=== PATIENT | female | born 1980 | race Caucasian/White ===

== ENCOUNTER 2018-05-18 14:41 | Emergency (ER) | payer MEDICAID ==
[~2018-05-18] VITALS: Ht 157.5 cm; Wt 109.3 kg
[~2018-05-18 14:41] MED LIST: ALBU6.7H INH; CLOB15CR4 TP; HYDR-4383 PO; IBUP-1986 PO; MACROBID PO; METH-360 PO; NO HOME MEDS; PHEN-786 PO
[2018-05-18] MEDS ORDERED: normal saline 1000ML IV soln IVB ONE (15:05)
[2018-05-18] MEDS ORDERED: ondansetron/PF 4mg/2ml inj IV ONE (15:05)
[2018-05-18 15:26] LABS: BASOPHILS % (AUTO) 0.7 % (0-1); EOSINOPHILS # (AUTO) 0.5 X10'3 (0-0.9); EOSINOPHILS % (AUTO) 7.3 % (0-6); HEMATOCRIT 38.5 % (35.0-45.0); HEMOGLOBIN 12.8 g/dl (12.0-16.0); LYMPHOCYTES # (AUTO) 1.7 X10'3 (1.1-4.8); LYMPHOCYTES % (AUTO) 26.7 % (21-51); MEAN CORPUSCULAR HEMOGLOBIN 29.8 PG (27.0-31.0); MEAN CORPUSCULAR HGB CONC 33.3 % (33.0-36.5); MEAN CORPUSCULAR VOLUME 89.4 FL (78-98); MEAN PLATELET VOLUME 7.4 FL (7.4-10.4); MONOCYTES # (AUTO) 0.3 X10'3 (0-0.9); MONOCYTES % (AUTO) 5.2 % (2-12); NEUTROPHILS # (AUTO) 3.7 X10'3 (1.8-7.7); NEUTROPHILS % (AUTO) 60.1 % (42-75); PLATELET COUNT 222 X10'3 (140-440); RED CELL DISTRIBUTION WIDTH 13.4 % (11.5-14.5); WHITE BLOOD COUNT 6.2 X10'3 (4.5-11.0)
[2018-05-18 15:46] LABS: ALANINE AMINOTRANSFERASE 29 U/L (12-78); ALBUMIN 3.3 G/DL (3.4-5.0); ALBUMIN/GLOBULIN RATIO 0.9 (1.1-1.5); ALKALINE PHOSPHATASE 99 IU/L (46-116); ANION GAP 7 (8-16); ASPARTATE AMINO TRANSFERASE 23 U/L (10-37); BILIRUBIN,TOTAL 0.3 MG/DL (0.1-1.0); BLOOD UREA NITROGEN 10 MG/DL (7-18); BUN/CREATININE RATIO 10.1 (6.6-38.0); CALCIUM 8.3 MG/DL (8.5-10.1); CHLORIDE 104 MMOL/L (99-107); CREATININE 0.99 MG/DL (0.40-0.90); GLUCOSE 107 MG/DL (70-104); LIPASE 100 U/L (73-393); SODIUM 140 MMOL/L (135-145); TOTAL PROTEIN 6.9 G/DL (6.4-8.2); eGFR 63 ML/MIN
[2018-05-18 15:53] LABS: URINE HCG NEGATIVE (NEG)
[2018-05-18 15:54] LABS: UA COLLECTION TYPE STRAIGHT CATH
[2018-05-18 15:55] LABS: CLARITY,URINE SLIGHTLY CLOUDY (Clear); COLOR,URINE YELLOW (Yellow); GLUCOSE, URINE NEGATIVE (Neg); PH,URINE 5.5 (4.8-8.0); PROTEIN,URINE TRACE mg/dl (Neg)
[2018-05-18 15:56] LABS: KETONES,URINE NEGATIVE (Neg); LEUKOCYTE ESTERASE ,URINE NEGATIVE (Neg); NITRITES, URINE NEGATIVE (Neg); OCCULT BLOOD,URINE LARGE (Neg); UROBILINOGEN,URINE 0.2 E.U/dL (0.2-1.0)
[2018-05-18 15:58] LABS: SQUAMOUS EPITHELIAL CELL,UR MANY /LPF (FEW)
[2018-05-18 15:59] LABS: MUCUS STRANDS MODERATE /LPF (Neg); RBC,URINE 20-50 /HPF (0-2)
[2018-05-18 16:00] LABS: BACTERIA,URINE FEW /HPF (Neg); WBC,URINE 0-4 /HPF (0-4)
[2018-05-18] MEDS ORDERED: ONDA4TAB9 PO (16:01)
[2018-05-18 19:08] VITALS: BP 141/73
== END 2018-05-18 19:09 | disposition home or self-care (01) ==
LOC: ER 14:41
DX: A08.4 Viral intestinal infection, unspecified (principal); R00.0 Tachycardia, unspecified; G89.29 Other chronic pain; E66.01 Morbid (severe) obesity due to excess calories; M19.90 Unspecified osteoarthritis, unspecified site; Z88.2 Allergy status to sulfonamides; Z91.013 Allergy to seafood; Z87.440 Personal history of urinary (tract) infections; Z90.49 Acquired absence of other specified parts of digestive tract; Z90.710 Acquired absence of both cervix and uterus; Z98.890 Other specified postprocedural states
CPT/HCPCS: 36415; 80053; 81001; 81025; 83690; 85025; 96361; 96374; 99285; J2405

== ENCOUNTER 2019-05-26 23:48 | Emergency (ER) | payer MEDICAID ==
[~2019-05-26] VITALS: Ht 157.5 cm; Wt 104.0 kg
[~2019-05-26 23:48] MED LIST changes: -ALBU6.7H INH; +ALBU6.7H9 INH
[2019-05-26 23:49] VITALS: BP 130/100
[2019-05-27] MEDS ORDERED: DOXYCYCLINE 100MG CAPSULE PO STA (00:52)
[2019-05-27] MEDS ORDERED: zinc oxide ointment 30gm tube TP STA (00:54)
[2019-05-27] MEDS ORDERED: DOXY100C43 PO (00:55)
[2019-05-27] MEDS ORDERED: bacitracin 15gm ointment TP ONE (00:55)
[2019-05-27] MEDS ORDERED: HYDR-3965 PO (00:55)
[2019-05-27] MEDS ORDERED: cephalexin 250mg capsule PO ONE (00:55)
[2019-05-27] MEDS ORDERED: HYDROcodone/acetaminophen 5mg/325mg tablet PO ONE (00:55)
== END 2019-05-27 01:32 | disposition home or self-care (01) ==
LOC: ER 23:48
DX: L03.317 Cellulitis of buttock (principal); K59.00 Constipation, unspecified; K31.9 Disease of stomach and duodenum, unspecified; N39.0 Urinary tract infection, site not specified; M19.90 Unspecified osteoarthritis, unspecified site; G89.29 Other chronic pain; L40.9 Psoriasis, unspecified; Z90.49 Acquired absence of other specified parts of digestive tract; Z90.710 Acquired absence of both cervix and uterus; Z88.2 Allergy status to sulfonamides; Z88.8 Allergy status to other drugs, medicaments and biological substances
CPT/HCPCS: 99284

== ENCOUNTER 2019-07-19 09:47 | Emergency (ER) | payer MEDICAID ==
[~2019-07-19] VITALS: Ht 157.5 cm; Wt 93.0 kg
[2019-07-19] MEDS ORDERED: famotidine/PF 10 mg/ml inj IV ONE (11:55)
[2019-07-19] MEDS ORDERED: normal saline 1000ML IV soln IVB ONE (11:55)
[2019-07-19] MEDS ORDERED: ondansetron/PF 4mg/2ml inj IV ONE (11:55)
[2019-07-19 12:49] LABS: BASOPHILS # (AUTO) 0.1 X10'3 (0-0.2); EOSINOPHILS # (AUTO) 0.3 X10'3 (0-0.9); EOSINOPHILS % (AUTO) 4.8 % (0-6); HEMATOCRIT 37.7 % (35.0-45.0); HEMOGLOBIN 12.9 g/dl (12.0-16.0); LYMPHOCYTES # (AUTO) 1.6 X10'3 (1.1-4.8); LYMPHOCYTES % (AUTO) 27.1 % (21-51); MEAN CORPUSCULAR HEMOGLOBIN 30.7 PG (27.0-31.0); MEAN CORPUSCULAR HGB CONC 34.2 g/dL (33.0-36.5); MEAN CORPUSCULAR VOLUME 89.8 FL (78-98); MEAN PLATELET VOLUME 7.9 FL (7.4-10.4); MONOCYTES # (AUTO) 0.4 X10'3 (0-0.9); MONOCYTES % (AUTO) 6.8 % (2-12); NEUTROPHILS # (AUTO) 3.7 X10'3 (1.8-7.7); NEUTROPHILS % (AUTO) 60.3 % (42-75); PLATELET COUNT 204 X10'3 (140-440); RED CELL DISTRIBUTION WIDTH 12.9 % (11.5-14.5); WHITE BLOOD COUNT 6.1 X10'3 (4.5-11.0)
[2019-07-19 12:55] LABS: CLARITY,URINE CLOUDY (Clear); COLOR,URINE YELLOW (Yellow); GLUCOSE, URINE NEGATIVE (Neg); KETONES,URINE NEGATIVE (Neg); LEUKOCYTE ESTERASE ,URINE NEGATIVE (Neg); NITRITES, URINE NEGATIVE (Neg); OCCULT BLOOD,URINE LARGE (Neg); PROTEIN,URINE NEGATIVE (Neg); UROBILINOGEN,URINE 0.2 E.U/dL (0.2-1.0)
[2019-07-19 12:56] LABS: UA COLLECTION TYPE CLN CATCH MIDSTREAM
[2019-07-19 13:04] LABS: MUCUS STRANDS MODERATE /LPF (Neg); SQUAMOUS EPITHELIAL CELL,UR MANY /LPF (FEW)
[2019-07-19 13:06] LABS: BACTERIA,URINE 2+ /HPF (Neg); RBC,URINE 20-50 /HPF (0-2); WBC,URINE 0-4 /HPF (0-4)
[2019-07-19 13:23] LABS: ALANINE AMINOTRANSFERASE 34 U/L (12-78); ALBUMIN 3.5 G/DL (3.4-5.0); ALBUMIN/GLOBULIN RATIO 0.9 (1.1-1.5); ALKALINE PHOSPHATASE 71 IU/L (46-116); ANION GAP 8 (8-16); ASPARTATE AMINO TRANSFERASE 25 U/L (10-37); BILIRUBIN,TOTAL 0.4 MG/DL (0.1-1.0); BLOOD UREA NITROGEN 16 MG/DL (7-18); BUN/CREATININE RATIO 20.3 (6.6-38.0); CALCIUM 8.6 MG/DL (8.5-10.1); CHLORIDE 108 MMOL/L (99-107); CREATININE 0.79 MG/DL (0.40-0.90); GLUCOSE 86 MG/DL (70-104); LIPASE 128 U/L (73-393); POTASSIUM 3.6 MMOL/L (3.5-5.1); SODIUM 145 MMOL/L (135-145); TOTAL PROTEIN 7.2 G/DL (6.4-8.2); eGFR 81 ML/MIN
[2019-07-19 14:09] VITALS: BP 102/64
[2019-07-19] MEDS ORDERED: ONDA4TAB6 PO (14:09)
[2019-07-19] MEDS ORDERED: FAMO40TA73 PO (14:09)
== END 2019-07-19 14:25 | disposition home or self-care (01) ==
LOC: ER 09:48
DX: K29.70 Gastritis, unspecified, without bleeding (principal); R11.2 Nausea with vomiting, unspecified; B34.9 Viral infection, unspecified; R31.9 Hematuria, unspecified; E66.01 Morbid (severe) obesity due to excess calories; R10.13 Epigastric pain; R10.11 Right upper quadrant pain; M19.90 Unspecified osteoarthritis, unspecified site; G89.29 Other chronic pain; Z90.49 Acquired absence of other specified parts of digestive tract; Z98.890 Other specified postprocedural states; Z90.710 Acquired absence of both cervix and uterus; Z86.14 Personal history of Methicillin resistant Staphylococcus aureus infection; Z79.899 Other long term (current) drug therapy; Z88.2 Allergy status to sulfonamides; Z91.013 Allergy to seafood
CPT/HCPCS: 36415; 74176; 80053; 81001; 83690; 85025; 96361; 96374; 96375; 99284; J2405; J3490; J7030

== ENCOUNTER 2019-07-25 10:50 | Day surgery (SDC) | payer MEDICAID ==
[~2019-07-25 10:50] MED LIST changes: +FAMO40TA73 PO; +ONDA4TAB6 PO
[2019-07-25] MEDS ORDERED: LIDOcaine 2% 5ml jelly ONE (12:06)
== END 2019-07-25 12:43 | disposition home or self-care (01) ==
LOC: WOUND CARE 10:50
PROVIDERS: ATTEND Surgery
DX: L98.492 Non-pressure chronic ulcer of skin of other sites with fat layer exposed (principal); K62.89 Other specified diseases of anus and rectum; M19.90 Unspecified osteoarthritis, unspecified site; G43.909 Migraine, unspecified, not intractable, without status migrainosus; K21.9 Gastro-esophageal reflux disease without esophagitis; E66.01 Morbid (severe) obesity due to excess calories; G89.4 Chronic pain syndrome; B34.9 Viral infection, unspecified; F32.9 Major depressive disorder, single episode, unspecified; F41.9 Anxiety disorder, unspecified; Z79.899 Other long term (current) drug therapy; Z98.890 Other specified postprocedural states; Z88.2 Allergy status to sulfonamides; Z91.013 Allergy to seafood; Z90.49 Acquired absence of other specified parts of digestive tract; Z90.710 Acquired absence of both cervix and uterus; Z86.14 Personal history of Methicillin resistant Staphylococcus aureus infection
CPT/HCPCS: 97597; A4663

== ENCOUNTER 2019-08-11 10:45 | Day surgery (SDC) | payer MEDICAID ==
[2019-08-11] MEDS ORDERED: LIDOcaine 2% 5ml jelly ONE (11:32)
== END 2019-08-11 12:22 | disposition home or self-care (01) ==
LOC: WOUND CARE 10:45
PROVIDERS: ATTEND Surgery
DX: L98.492 Non-pressure chronic ulcer of skin of other sites with fat layer exposed (principal); K62.89 Other specified diseases of anus and rectum; M19.90 Unspecified osteoarthritis, unspecified site; G43.909 Migraine, unspecified, not intractable, without status migrainosus; K21.9 Gastro-esophageal reflux disease without esophagitis; E66.01 Morbid (severe) obesity due to excess calories; G89.4 Chronic pain syndrome; F32.9 Major depressive disorder, single episode, unspecified; F41.9 Anxiety disorder, unspecified; Z79.899 Other long term (current) drug therapy; Z98.890 Other specified postprocedural states; Z90.49 Acquired absence of other specified parts of digestive tract; Z90.710 Acquired absence of both cervix and uterus; Z86.14 Personal history of Methicillin resistant Staphylococcus aureus infection; Z68.41 Body mass index [BMI] 40.0-44.9, adult
CPT/HCPCS: 97597; A4663; A6021

== ENCOUNTER 2019-09-09 22:54 | Emergency (ER) | payer MEDICAID ==
[~2019-09-09] VITALS: Ht 157.5 cm; Wt 100.0 kg
[2019-09-09] MEDS ORDERED: ondansetron 4mg rapidly disintigrating tab PO STA (23:19)
--- NOTE | 2019-09-09 23:24 | NUR ---
vomited x 4 in triage, sour milk consistency. Adm a zofran. She cries non stop r/t pain.
[2019-09-09 23:44] LABS: BASOPHILS % (AUTO) 0.7 % (0-1); EOSINOPHILS # (AUTO) 0.7 X10'3 (0-0.9); EOSINOPHILS % (AUTO) 10.9 % (0-6); HEMATOCRIT 39.8 % (35.0-45.0); HEMOGLOBIN 13.5 g/dl (12.0-16.0); LYMPHOCYTES # (AUTO) 0.7 X10'3 (1.1-4.8); LYMPHOCYTES % (AUTO) 10.8 % (21-51); MEAN CORPUSCULAR VOLUME 88.2 FL (78-98); MEAN PLATELET VOLUME 7.4 FL (7.4-10.4); MONOCYTES # (AUTO) 0.3 X10'3 (0-0.9); MONOCYTES % (AUTO) 5.6 % (2-12); NEUTROPHILS # (AUTO) 4.5 X10'3 (1.8-7.7); PLATELET COUNT 203 X10'3 (140-440); RED BLOOD COUNT 4.52 X10'6 (4.20-5.60); RED CELL DISTRIBUTION WIDTH 13.3 % (11.5-14.5); WHITE BLOOD COUNT 6.3 X10'3 (4.5-11.0)
[2019-09-09 23:54] LABS: ALANINE AMINOTRANSFERASE 82 U/L (12-78); ALBUMIN 3.5 G/DL (3.4-5.0); ALBUMIN/GLOBULIN RATIO 0.9 (1.1-1.5); ALKALINE PHOSPHATASE 207 IU/L (46-116); ANION GAP 5 (8-16); ASPARTATE AMINO TRANSFERASE 68 U/L (10-37); BILIRUBIN,TOTAL 0.3 MG/DL (0.1-1.0); BLOOD UREA NITROGEN 11 MG/DL (7-18); CALCIUM 8.8 MG/DL (8.5-10.1); CHLORIDE 103 MMOL/L (99-107); CREATININE 0.92 MG/DL (0.40-0.90); GLUCOSE 104 MG/DL (70-104); LIPASE 100 U/L (73-393); POTASSIUM 4.2 MMOL/L (3.5-5.1); SODIUM 139 MMOL/L (135-145); TOTAL CARBON DIOXIDE 31.1 MMOL/L (24-32); TOTAL PROTEIN 7.6 G/DL (6.4-8.2); eGFR 68 ML/MIN
[2019-09-10] MEDS ORDERED: ondansetron/PF 4mg/2ml inj IV ONE (01:05)
[2019-09-10] MEDS ORDERED: normal saline 1000ml 1,000 ML IV ONE (01:05)
[2019-09-10] MEDS ORDERED: famotidine/PF 10 mg/ml inj IV ONE (01:05)
[2019-09-10] MEDS ORDERED: LIDOcaine Viscous 15ml cup MM ONE (01:05)
[2019-09-10] MEDS ORDERED: mag hydrox/Alum hydrox/simeth 30ml oral suspension PO ONE (01:05)
[2019-09-10] MEDS ORDERED: ketorolac trometh. 30mg/ml inj. IV ONE (01:05)
[2019-09-10] MEDS ORDERED: acetaminophen 325mg tablet PO ONE (02:10)
[2019-09-10] MEDS ORDERED: ONDA8TAB6 PO (02:10)
[2019-09-10 03:33] VITALS: BP 110/68
== END 2019-09-10 03:34 | disposition home or self-care (01) ==
LOC: ER 22:55
DX: J11.1 Influenza due to unidentified influenza virus with other respiratory manifestations (principal); R10.84 Generalized abdominal pain; R11.10 Vomiting, unspecified; M19.90 Unspecified osteoarthritis, unspecified site; G89.29 Other chronic pain; Z86.14 Personal history of Methicillin resistant Staphylococcus aureus infection; Z87.440 Personal history of urinary (tract) infections; Z90.49 Acquired absence of other specified parts of digestive tract; Z98.890 Other specified postprocedural states; Z90.710 Acquired absence of both cervix and uterus; Z87.11 Personal history of peptic ulcer disease; Z88.2 Allergy status to sulfonamides; Z91.013 Allergy to seafood; Z79.899 Other long term (current) drug therapy
CPT/HCPCS: 36415; 74176; 80053; 83690; 85025; 96361; 96374; 96375; 99284; J1885; J2405; J3490; J7030

== ENCOUNTER 2019-09-16 00:02 | Emergency (ER) | payer MEDICAID ==
[~2019-09-16] VITALS: Ht 154.9 cm; Wt 94.5 kg
[~2019-09-16 00:02] MED LIST changes: +ONDA8TAB6 PO
[2019-09-16] MEDS ORDERED: naloxone 2mg/2ml inj IV STA (00:21)
[2019-09-16] MEDS ORDERED: naloxone 2mg/2ml inj ONE (00:22)
[2019-09-16] MEDS ORDERED: normal saline 1000ML IV soln IVB ONE (00:30)
[2019-09-16 00:46] LABS: BASOPHILS % (AUTO) 0.5 % (0-1); EOSINOPHILS # (AUTO) 0.4 X10'3 (0-0.9); EOSINOPHILS % (AUTO) 9.4 % (0-6); HEMATOCRIT 37.2 % (35.0-45.0); HEMOGLOBIN 12.5 g/dl (12.0-16.0); LYMPHOCYTES % (AUTO) 52.1 % (21-51); MEAN CORPUSCULAR HEMOGLOBIN 29.6 PG (27.0-31.0); MEAN CORPUSCULAR HGB CONC 33.6 g/dL (33.0-36.5); MEAN CORPUSCULAR VOLUME 88.2 FL (78-98); MEAN PLATELET VOLUME 7.7 FL (7.4-10.4); MONOCYTES # (AUTO) 0.3 X10'3 (0-0.9); MONOCYTES % (AUTO) 7.8 % (2-12); NEUTROPHILS # (AUTO) 1.1 X10'3 (1.8-7.7); NEUTROPHILS % (AUTO) 30.2 % (42-75); PLATELET COUNT 148 X10'3 (140-440); RED BLOOD COUNT 4.22 X10'6 (4.20-5.60); RED CELL DISTRIBUTION WIDTH 13.4 % (11.5-14.5); WHITE BLOOD COUNT 3.7 X10'3 (4.5-11.0)
[2019-09-16 00:57] LABS: ALBUMIN/GLOBULIN RATIO 0.8 (1.1-1.5); ANION GAP 6 (8-16); ASPARTATE AMINO TRANSFERASE 37 U/L (10-37); BILIRUBIN,TOTAL 0.2 MG/DL (0.1-1.0); BLOOD UREA NITROGEN 9 MG/DL (7-18); BUN/CREATININE RATIO 10.5 (6.6-38.0); CALCIUM 8.9 MG/DL (8.5-10.1); CHLORIDE 106 MMOL/L (99-107); CREATININE 0.86 MG/DL (0.40-0.90); GLUCOSE 107 MG/DL (70-104); POTASSIUM 3.5 MMOL/L (3.5-5.1); SODIUM 143 MMOL/L (135-145); TOTAL CARBON DIOXIDE 31.4 MMOL/L (24-32); TOTAL PROTEIN 6.9 G/DL (6.4-8.2); eGFR 74 ML/MIN
[2019-09-16 00:58] LABS: ALANINE AMINOTRANSFERASE 50 U/L (12-78); ALKALINE PHOSPHATASE 133 IU/L (46-116); PARTIAL THROMBOPLASTIN TIME 26 SECONDS (22-32)
[2019-09-16 01:00] LABS: LACTIC SEPSIS 1.1 MMOL/L (0.4-2.0)
[2019-09-16 01:01] LABS: TROPONIN I < 0.04 NG/ML (0.0-0.05)
[2019-09-16 01:09] LABS: ACETAMINOPHEN < 2.0 UG/ML (10-30); ETHANOL < 0.010 GM/DL (0.0-0.010)
--- NOTE | 2019-09-16 01:10 | NUR ---
PT BECOMING MORE ALERT, AWAKING TO VERBAL STIMULI, SLURRED SPEECH BUT STATED SHE TOOK SUBOXONE, ABX, AND GABAPENTIN. PT BECOMING AGGRESSIVE AFTER ABG DRAW ATTEMPT AND EKG. PT PULLING ON LINES AND SWINGING AND KICKING AT STAFF. SOFT RESTRAINTS APPLIED. PT GOT HERSELF OUT OF SOFT RESTRAINTS AND SWUNG AND BIT STAFF. SECURITY BY BEDSIDE. DR LONGORIA CAME TO BEDSIDE AND ORDERED HARD RESTRAINTS AFTER PT STILL NOT COOPERATING.
[2019-09-16 01:14] LABS: PLATELET ESTIMATE NORMAL; TOTAL CELLS COUNTED 100
[2019-09-16 02:07] LABS: CLARITY,URINE CLEAR (Clear); COLOR,URINE YELLOW (Yellow); GLUCOSE, URINE NEGATIVE (Neg); KETONES,URINE NEGATIVE (Neg); LEUKOCYTE ESTERASE ,URINE NEGATIVE (Neg); NITRITES, URINE NEGATIVE (Neg); OCCULT BLOOD,URINE LARGE (Neg); PROTEIN,URINE NEGATIVE (Neg); URINE HCG NEGATIVE (NEG); UROBILINOGEN,URINE 0.2 E.U/dL (0.2-1.0)
[2019-09-16 02:20] LABS: URINE AMPHETAMINE SCREEN NEGATIVE (Neg); URINE BARBITUATE SCREEN NEGATIVE (Neg); URINE BENZODIAZEPINES SCREEN NEGATIVE (Neg); URINE CANNABINOID SCREEN NEGATIVE (Neg); URINE COCAINE SCREEN NEGATIVE (Neg); URINE METHADONE SCREEN NEGATIVE (Neg); URINE OPIATE SCREEN NEGATIVE (Neg); URINE PHENCYCLIDINE SCREEN NEGATIVE (Neg)
[2019-09-16 02:22] LABS: UA COLLECTION TYPE VOIDED
[2019-09-16 02:25] LABS: BACTERIA,URINE NONE SEEN /HPF (Neg); RBC,URINE 20-50 /HPF (0-2); SQUAMOUS EPITHELIAL CELL,UR MODERATE /LPF (FEW); WBC,URINE 0-4 /HPF (0-4)
--- NOTE | 2019-09-16 03:18 | NUR ---
ROUNDING ON PT, PT NONVERBAL, RESPONSIVE ONLY TO PAINFUL STIMULI AND NONVERBAL.
--- NOTE | 2019-09-16 03:20 | NUR ---
[employer] OFFICER ALERTED THIS RN THAT PT STATED NEED TO URINATE. PT A&OX4 DURING THIS INTERACTION. PT ABLE TO AMBULATE 50 FT TO AND FROM BATHROOM WITH NO DIFFICULTIES. SWATI ALEMAN AWARE
[2019-09-16] MEDS ORDERED: AZIT250T81 PO (03:51)
[2019-09-16 04:01] VITALS: BP 112/69
== END 2019-09-16 04:05 | disposition home or self-care (01) ==
LOC: ER 00:03
DX: G92 Toxic encephalopathy (principal); R41.82 Altered mental status, unspecified; G89.29 Other chronic pain; M19.90 Unspecified osteoarthritis, unspecified site; R79.1 Abnormal coagulation profile; Z90.710 Acquired absence of both cervix and uterus; Z90.49 Acquired absence of other specified parts of digestive tract; Z98.890 Other specified postprocedural states; Z86.14 Personal history of Methicillin resistant Staphylococcus aureus infection; Z91.041 Radiographic dye allergy status; Z88.2 Allergy status to sulfonamides; Z79.899 Other long term (current) drug therapy
CPT/HCPCS: 36415; 70450; 71045; 71250; 74176; 80053; 80305; 80320; 80329; 81001; 81025; 82140; 82800; 82948; 83605; 84484; 85025; 85610; 85730; 87040; 87502; 87503; 93005; 96374; 99285; J2310; J7030

== ENCOUNTER 2020-01-02 15:10 | Emergency (ER) | payer MEDICAID ==
[~2020-01-02] VITALS: Ht 157.5 cm; Wt 109.0 kg
[2020-01-02 16:00] VITALS: BP 126/83
[2020-01-02] MEDS ORDERED: ONDA4TAB6 PO (17:07)
== END 2020-01-02 17:26 | disposition home or self-care (01) ==
LOC: ER 15:10
DX: K08.89 Other specified disorders of teeth and supporting structures (principal); M19.90 Unspecified osteoarthritis, unspecified site; R11.0 Nausea; Z90.49 Acquired absence of other specified parts of digestive tract; Z90.710 Acquired absence of both cervix and uterus; Z98.890 Other specified postprocedural states; Z86.14 Personal history of Methicillin resistant Staphylococcus aureus infection; Z88.2 Allergy status to sulfonamides; Z91.041 Radiographic dye allergy status; Z79.899 Other long term (current) drug therapy
CPT/HCPCS: 99283

== ENCOUNTER 2020-03-27 14:42 | Emergency (ER) | payer MEDICAID ==
[~2020-03-27] VITALS: Ht 157.5 cm; Wt 100.0 kg
[2020-03-27 14:45] VITALS: BP 134/72
[2020-03-27] MEDS ORDERED: AZIT250T2 PO (15:35)
[2020-03-27] MEDS ORDERED: ALBU18HF2 INH (15:35)
--- NOTE | 2020-03-27 15:48 | NUR ---
Patient seen and assessed by provider.
== END 2020-03-27 15:49 | disposition home or self-care (01) ==
LOC: ER 14:42
DX: J20.9 Acute bronchitis, unspecified (principal); J45.909 Unspecified asthma, uncomplicated; G89.29 Other chronic pain; M19.90 Unspecified osteoarthritis, unspecified site; F32.9 Major depressive disorder, single episode, unspecified; Z86.14 Personal history of Methicillin resistant Staphylococcus aureus infection; Z90.49 Acquired absence of other specified parts of digestive tract; Z90.710 Acquired absence of both cervix and uterus; Z98.890 Other specified postprocedural states; Z91.041 Radiographic dye allergy status; Z88.2 Allergy status to sulfonamides; Z88.5 Allergy status to narcotic agent; Z79.899 Other long term (current) drug therapy
CPT/HCPCS: 71045; 99283